=== PATIENT | male | born 2000 | race Caucasian/White ===

== ENCOUNTER 2021-12-05 16:55 | Outpatient (CLI) | payer BC, SELFPAY ==
[2021-12-05 12:42] LABS: Albumin* 4.6 g/dL (3.3-5.0); Chloride* 100 mmol/L (96-114); Sodium* 137 mmol/L (135-149)
[2021-12-05 12:44] LABS: Cholesterol* 140 mg/dL (90-199); Creatinine* 0.9 mg/dL (0.5-1.5); Estimated Glomerular Filt Rate 125 ml/min
[2021-12-05 12:45] LABS: Alanine Aminotransferase* 27 U/L (4-50); Alkaline Phosphatase* 107 U/L (40-150); Aspartate Amino Transferase* 31 U/L (12-35); Bilirubin Total* 0.6 mg/dL (0.1-1.5); Blood Urea Nitrogen* 11 mg/dL (5-24); Carbon Dioxide* 26 mmol/L (20-32); Glucose* 105 mg/dL (60-115); Total Protein* 7.3 g/dL (6.0-8.3); Triglycerides* 73 mg/dL (40-149)
[2021-12-05 12:46] LABS: Calcium* 9.7 mg/dL (8.4-10.6); HDL Cholesterol* 46 mg/dL (>=40); LDL Cholesterol Calculated 79 mg/dL (<100)
== END 2021-12-05 16:56 | disposition home or self-care (01) ==
PROVIDERS: PCP Physician Assistant Medical; Visit Provider Physician Assistant Medical
DX: Z00.00 Encounter for general adult medical examination without abnormal findings (principal); Z13.6 Encounter for screening for cardiovascular disorders
CPT/HCPCS: 80053; 80061

== ENCOUNTER 2021-12-10 13:42 | Outpatient (CLI) | payer BC, SELFPAY | END 2021-12-10 13:43 | disposition home or self-care (01) | PROVIDERS: PCP Physician Assistant Medical; Visit Provider Physician Assistant Medical | DX: Z00.00 Encounter for general adult medical examination without abnormal findings (principal); K13.79 Other lesions of oral mucosa | CPT/HCPCS: 87252 ==

== ENCOUNTER 2022-02-18 20:00 | Outpatient (CLI) | payer BC, SELFPAY ==
--- NOTE | 2022-03-12 14:37 | W.PM.SLEEP ---
Sleep Study Details Details Interpreting Provider: Khang Klein MD Date of Sleep Study: 02/18/22 Sleep Study Details: STUDY TYPE:? Home ? BMI:? 26.7 ORDERING PROVIDER:? Edita INDICATION:? Concerns about sleep apnea ? SLEEP SUMMARY:? 568 minutes monitored RESPIRATORY SUMMARY:? AHI 8.3, supine 11.1, prone 7.7, left lateral 4.6, right lateral 8.9 Low oxygen 82 3.9% of study oxygen less than 90%, 0.2% of study oxygen less than 85% Snoring 6.3% PERIODIC LIMB MOVEMENTS OF SLEEP:? Not recorded CARDIAC:? 51-121, mean 69.1 IMPRESSION:? Mild obstructive sleep apnea with supine and right lateral position dependency and significant desaturations RECOMMENDATION: Treatment options include AutoSet CPAP at 4-17, dental appliance and/or airway expansion surgery
== END 2022-02-18 20:01 | disposition home or self-care (01) ==
PROVIDERS: PCP Physician Assistant Medical; Visit Provider Otolaryngology
DX: G47.33 Obstructive sleep apnea (adult) (pediatric) (principal)
CPT/HCPCS: 95806